=== PATIENT | female | born 1990 | race Caucasian/White ===

== ENCOUNTER 2018-07-01 08:46 | Emergency (ER) | payer OTHER, SELFPAY ==
[2018-07-01] MEDS: NAPROXEN 250 MG TAB PO (09:15)
== END 2018-07-01 09:28 | disposition home or self-care (01) ==
LOC: M ED 08:46
DX: M54.5 Low back pain (principal); F17.220 Nicotine dependence, chewing tobacco, uncomplicated
CPT/HCPCS: 99282

== ENCOUNTER → 2018-07-04 | Outpatient (CLI) | payer OTHER | LOC: M LRY 18:25 | DX: M53.3 Sacrococcygeal disorders, not elsewhere classified (principal); S39.92XS Unspecified injury of lower back, sequela; X50.0XXA Overexertion from strenuous movement or load, initial encounter; Y92.008 Other place in unspecified non-institutional (private) residence as the place of occurrence of the external cause; Y93.E9 Activity, other interior property and clothing maintenance | CPT/HCPCS: 72220 ==

== ENCOUNTER → 2018-09-11 | Outpatient (CLI) | payer OTHER ==
[~2018-09-11] MED LIST: CYCL10TA PO; NAPR-49 PO
--- NOTE | 2018-09-12 02:27 | REP ---
Clinical: Acute right ankle pain with recent trauma/fall . Technique: AP, lateral, bilateral oblique views. Findings: Four views of the right ankle obtained. No acute fracture or dislocation. Skeletal structures and joint spaces are intact and normal. Ankle mortise appears stable. No subcutaneous emphysema or radiodense foreign body. Lateral view demonstrates small calcaneal heal spur. Impression: Normal age-appropriate right ankle radiograph series. No acute fracture or dislocation. Electronically Signed by Jeremi Bernal MD 09/12/2018 02:18 A
== END ==
LOC: M LRY 16:44
PROVIDERS: ATTEND Physician Assistant
DX: M77.31 Calcaneal spur, right foot (principal); M25.571 Pain in right ankle and joints of right foot

== ENCOUNTER 2018-09-16 08:59 | Emergency (ER) | payer OTHER | END 2018-09-16 09:41 | disposition home or self-care (01) | LOC: M ED 08:59 | DX: S99.911A Unspecified injury of right ankle, initial encounter (principal); X50.1XXA Overexertion from prolonged static or awkward postures, initial encounter; Y92.099 Unspecified place in other non-institutional residence as the place of occurrence of the external cause; Y93.89 Activity, other specified; Y99.9 Unspecified external cause status | CPT/HCPCS: 99283 ==

== ENCOUNTER 2018-11-30 08:26 | Emergency (ER) | payer OTHER ==
[~2018-11-30] VITALS: Ht 170.2 cm; Wt 100.0 kg
[~2018-11-30 08:26] MED LIST changes: -NAPR-49 PO; +NAPR-50 PO
[2018-11-30 08:27] VITALS: BP 125/92
--- NOTE | 2018-11-30 09:28 | REP ---
Right lower extremity Duplex Doppler venous ultrasound: Real time compression and duplex Doppler interrogation of the right lower extremity deep venous system is performed. The right common femoral, superficial femoral and popliteal veins are fully compressible with transducer pressure and demonstrate normal spontaneous and phasic flow, without evidence of deep venous thrombosis. Impression: No evidence of deep venous thrombosis of the right lower extremity femoral popliteal venous system. Electronically Signed by James Lee MD 11/30/2018 09:19 A
[2018-11-30] MEDS ORDERED: NAPR-50 PO (09:42)
== END 2018-11-30 09:45 | disposition home or self-care (01) ==
LOC: M ED 08:26
DX: S86.111A Strain of other muscle(s) and tendon(s) of posterior muscle group at lower leg level, right leg, initial encounter (principal); X58.XXXA Exposure to other specified factors, initial encounter; Y92.89 Other specified places as the place of occurrence of the external cause; Z88.0 Allergy status to penicillin; F17.220 Nicotine dependence, chewing tobacco, uncomplicated

== ENCOUNTER 2019-03-22 12:40 | Emergency (ER) | payer OTHER ==
[~2019-03-22] VITALS: Ht 162.6 cm; Wt 115.7 kg
[~2019-03-22 12:40] MED LIST changes: -NAPR-50 PO; +NAPR-837 PO
[2019-03-22] MEDS ORDERED: IBUP200C25 PO (12:46)
--- NOTE | 2019-03-22 15:15 | REP ---
Clinical: Right lower extremity pain. Technique: AP and lateral views of the right tibia / fibula. Findings: Osseous structures, joint spaces, and surrounding soft tissues are normal. No subcutaneous emphysema or radiodense foreign body. No overt arthritic changes. Impression: Normal right tibia / fibula radiographs. Electronically Signed by Jeremi Bernal MD 03/22/2019 03:06 P
[2019-03-22] MEDS ORDERED: IBUPROFEN 600 MG TAB PO ONE (15:30)
[2019-03-22 15:54] VITALS: BP 117/73
== END 2019-03-22 15:56 | disposition home or self-care (01) ==
LOC: M ED 12:40
DX: M79.604 Pain in right leg (principal); F17.220 Nicotine dependence, chewing tobacco, uncomplicated

== ENCOUNTER → 2019-10-05 | Outpatient (REF) | payer OTHER ==
[~2019-10-05] MED LIST changes: +IBUP200C25 PO
== END ==
LOC: M SFHCLERA 19:42
PROVIDERS: ATTEND Physician Assistant
DX: R10.9 Unspecified abdominal pain (principal)

== ENCOUNTER 2019-10-19 12:31 | Emergency (ER) | payer OTHER ==
[~2019-10-19] VITALS: Ht 162.6 cm; Wt 112.9 kg
--- NOTE | 2019-10-19 13:57 | REP ---
Bilateral lower extremity deep vein duplex ultrasound: The deep veins demonstrate normal compression, normal Doppler color flow and normal Doppler waveforms with respiration and augmentation from the popliteal veins to the common femoral veins. Impression: There is no deep vein thrombus on the right on the left. Electronically Signed by James Christian MD 10/19/2019 01:49 P
[2019-10-19] MEDS ORDERED: IBUP-1022 PO (14:20)
[2019-10-19 14:25] VITALS: BP 145/94
== END 2019-10-19 14:27 | disposition home or self-care (01) ==
LOC: M ED 12:31
DX: M79.661 Pain in right lower leg (principal)

== ENCOUNTER 2019-12-12 14:45 | Emergency (ER) | payer OTHER ==
[~2019-12-12] VITALS: Ht 170.2 cm; Wt 111.6 kg
[~2019-12-12 14:45] MED LIST changes: +IBUP-1022 PO
[2019-12-12 14:46] VITALS: BP 129/72
[2019-12-12] MEDS ORDERED: ELIM5CRE2 TOP (15:33)
== END 2019-12-12 15:43 | disposition home or self-care (01) ==
LOC: M ED 14:45
DX: S40.862A Insect bite (nonvenomous) of left upper arm, initial encounter (principal); S20.469A Insect bite (nonvenomous) of unspecified back wall of thorax, initial encounter; W57.XXXA Bitten or stung by nonvenomous insect and other nonvenomous arthropods, initial encounter

== ENCOUNTER 2020-06-12 14:34 | Emergency (ER) | payer OTHER ==
[~2020-06-12] VITALS: Ht 165.1 cm; Wt 111.2 kg
[~2020-06-12 14:34] MED LIST changes: +CYCL-707 PO; -CYCL10TA PO; +ELIM5CRE2 TOP
--- NOTE | 2020-06-12 15:33 | REPVR ---
PROCEDURE INFORMATION: Exam: XR Left Wrist Exam date and time: 06/12/2020 3:25 PM Age: 29 years old Clinical indication: Injury or trauma; Fall; Initial encounter; Blunt trauma (contusions or hematomas); Wrist; Left; Additional info: Fall injury TECHNIQUE: Imaging protocol: XR Left wrist. Views: 3 or more views. COMPARISON: No relevant prior studies available. FINDINGS: Bones/joints: Normal. Soft tissues: Normal. IMPRESSION: No acute findings. Electronically signed by: Sharmin Morrissey On 06/12/2020 15:32:41 PM
[2020-06-12 16:34] VITALS: BP 129/87
== END 2020-06-12 16:35 | disposition home or self-care (01) ==
LOC: M ED 14:34
DX: S63.502A Unspecified sprain of left wrist, initial encounter (principal); W01.0XXA Fall on same level from slipping, tripping and stumbling without subsequent striking against object, initial encounter; Y92.019 Unspecified place in single-family (private) house as the place of occurrence of the external cause; F17.220 Nicotine dependence, chewing tobacco, uncomplicated

== ENCOUNTER → 2020-08-06 | Outpatient (CLI) | payer OTHER ==
[2020-08-06 14:08] LABS: ALBUMIN 3.3 GM/DL (3.2-5.2); ALT/SGPT 22 U/L (12-78); BILIRUBIN,TOTAL 0.5 MG/DL (0.2-1.0); BLOOD UREA NITROGEN 9 MG/DL (7-18); CALCIUM LEVEL 8.8 MG/DL (8.5-10.1); CARBON DIOXIDE LEVEL 24 MEQ/L (21-32); CHLORIDE LEVEL 109 MEQ/L (98-107); CREATININE FOR GFR 0.68 MG/DL (0.55-1.30); FREE T4 1.15 NG/DL (0.76-1.46); GLOMERULAR FILTRATION RATE > 60.0 (>60); GLUCOSE, FASTING 121 MG/DL (70-100); POTASSIUM SERUM 3.7 MEQ/L (3.5-5.1); SODIUM LEVEL 140 MEQ/L (136-145); TOTAL PROTEIN 6.7 GM/DL (6.4-8.2)
== END ==
LOC: M LAB 12:51
PROVIDERS: ATTEND Nurse Practitioner Family
DX: F41.9 Anxiety disorder, unspecified (principal)

== ENCOUNTER → 2021-05-02 | Outpatient (CLI) | payer OTHER ==
--- NOTE | 2021-05-02 12:37 | REP ---
INDICATION: PAIN IN RIGHT KNEE. COMPARISON: 01/16/2013. TECHNIQUE: There are four views including weight-bearing lateral view, tunnel view, nonweightbearing lateral view and patellofemoral sunrise view. There is no AP view for reasons unknown to this examiner. FINDINGS: The previous suprapatellar are effusion is no longer present. The previous soft tissue edema anteriorly is no longer present. Mineralization and joint spaces are unremarkable. There are no calcifications. On the patellar view the patella is slightly tilted laterally. IMPRESSION: The patella appears slightly tilted laterally. Otherwise, the views presented are unremarkable. <Electronically signed by James Christian > 05/02/21 [id number]
== END ==
LOC: M SOG 10:48
PROVIDERS: ATTEND Orthopaedic Surgery Adult Reconstructive Orthopaedic Surgery
DX: M25.561 Pain in right knee (principal)

== ENCOUNTER → 2021-05-14 | Outpatient (CLI) | payer OTHER ==
--- NOTE | 2021-05-14 13:23 | REP ---
INDICATION: UNSPECIFIED INTERNAL DERANGEMENT RT KNEE. COMPARISON: MRI 03/18/2010, plain films 05/02/2021. TECHNIQUE: Multiple sequences obtained in the axial, coronal and sagittal planes. FINDINGS: Menisci: Intact, no tear. Cruciate ligaments: Intact. Collateral ligaments: Intact. Extensor mechanism/patellar retinacula: Intact. Cartilage: There is moderate diffuse chondromalacia of the lateral patellar facet with mild chondromalacia of the medial patellar facet. There is mild diffuse chondromalacia of the femoral condyles and tibial plateaus. Bone marrow: There is mild subcortical marrow edema anteriorly in the central tibial plateau. Joint fluid: There is a mild to moderate joint effusion. Popliteal region: No cyst. IMPRESSION: No evidence of internal derangement. Diffuse chondromalacia, most significantly of the lateral patellar facet. Mild subchondral marrow edema in the anterior central tibial plateau. Mild to moderate joint effusion. <Electronically signed by James Lee > 05/14/21 [id number]
== END ==
LOC: M RAD 11:34
PROVIDERS: ATTEND Orthopaedic Surgery Adult Reconstructive Orthopaedic Surgery
DX: M23.91 Unspecified internal derangement of right knee (principal)

== ENCOUNTER → 2021-06-12 | Outpatient (CLI) | payer OTHER ==
[~2021-06-12] MED LIST changes: +ALBU8.5H INH; +HYDR-3363 PO; +LEXA1TAB2 PO
== END ==
LOC: M LABSMTC 10:19
PROVIDERS: ATTEND Anesthesiology
DX: Z01.818 Encounter for other preprocedural examination (principal); Z11.52 Encounter for screening for COVID-19

== ENCOUNTER → 2021-06-17 | Day surgery (SDC) | payer OTHER ==
[~2021-06-17] VITALS: Ht 167.6 cm; Wt 110.9 kg
[~2021-06-17] MED LIST changes: +ACETAMINOPHEN 500 MG TAB PO ONE; +BUPIVACAINE/EPIN 0.5% 30 ML VIAL As Ordered ONE; +CelecoXIB 400 MG CAP PO ONE; +EPINEPHrine 1MG/ML INJ 30ML MD-VIAL As Ordered ONE; +GABAPENTIN 300 MG CAP PO ONE; +HYDROmorphone HCL 2 MG/ML 1ML VIAL As Ordered ONE; +LIDOCAINE 2% 100MG/5ML SDV (FOR ANES.) As Ordered ONE; +LR 1,000 ML IV ONE; +LR 1,000 ML IV SCH; +METOCLOPRAMIDE INJ 10MG/2ML VIAL (J2765 PER 1) As Ordered ONE; +METOCLOPRAMIDE INJ 10MG/2ML VIAL (J2765 PER 1) IV PRN; +MIDAZOLAM INJ 2MG/2ML VIAL (J2250 PER 1MG) As Ordered ONE; +ONDANSETRON 4MG/2ML VIAL As Ordered ONE; +ONDANSETRON 4MG/2ML VIAL IV ONE; +ONDANSETRON 4MG/2ML VIAL IV PRN; +PERCOCET 5MG/325MG TAB PO PRN; +dexameTHASONE 4 MG/ML 1ML VIAL (J1100 PER 1MG) As Ordered ONE; +ePHEDrine SULFATE 25 MG/5 ML(5MG/ML) SYRINGE As Ordered ONE; +fentaNYL 100 MCG/2 ML INJECTION (J3010) As Ordered ONE; +fentaNYL 100 MCG/2 ML INJECTION (J3010) IV PRN; +propofoL 200 MG/20 ML VIAL As Ordered ONE
--- NOTE | 2021-06-17 12:31 | ROOPDOC ---
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 COMPLICATIONS: No known complications. REMARKS: Tourniquet inflated for 34 minutes. PROCEDURE NOTE: The patient was seen in the preoperative area, Consent was reviewed or obtained and the appropriate extremity was marked. DESCRIPTION OF PROCEDURE: The patient was brought to the operating room and after a surgical pause, the anesthetic was induced. The patient was appropriately positioned supine on the operating room table. A tourniquet was applied to the appropriate thigh with appropriate padding. Side bolster was also applied to help with manipulation of the extremity during the procedure. The extremity was prepped with chlorhexidine. The patient was draped in the normal sterile fashion. After a surgical safety checklist was performed, and a timeout was performed, the tourniquet was inflated and the incision over the lateral portal site was carried out. The trocar was introduced using the blunt tip. The scope was intr oduced and the fluid was allowed to run until the joint was insufflated with the scope in the patellofemoral joint. A diagnostic arthroscopy was then carried out. A medial portal was established using needle localization technique. A superior lateral portal was also established using needle localization. Patellofemoral joint: Plica present which was debrided with the shaver Patella: Grade 2-3 changes debrided with the shaver Medial gutter: Clear Lateral gutter: Clear Medial meniscus: Stable Medial femoral condyle: Grade 1 Medial tibial condyle: Grade 1 ACL: Stable Lateral meniscus: Stable Lateral femoral condyle: Grade 1 Lateral tibial plateau: Grade 1 was some evidence of delamination, centrally Using spinal needle localization a superior lateral portal was made in the patellofemoral pouch area. This was expanded with the #11 blade and the portal and instruments were introduced through this in order to get a better view of the lateral retinacular area. This was utilized to perform the lateral release utilizing a cautery device. Post lateral release it was noted that the patellofemoral joint which had been quite tight was relaxed and loose and there was less pressure on the lateral edge. Once the arthroscopic procedure was completed, the fluid was removed from the joint and the wounds were closed with 3. 0 Monocryl suture. Local anesthetic of 0.5% Marcaine with epi was instilled in the soft tissues and into the joint region. Mastisol was applied to the skin followed by Steri-Strips and Telfa and Tegaderm dressing. This was reinforced with an abdominal pad and a large John wrap was placed up to the level of the thigh from the foot and ankle. The patient tolerated the procedure well with no known complications. The patient will be seen for follow-up within 2 weeks, as scheduled. Postoperative instruction booklet was provided. The patient will have prescriptions for oxycodone for pain, baby aspirin for DVT prophylaxis, and senna for constipation. Tylenol and ibuprofen can be used as directed by bottle instructions. Prescriptions were sent to [facility], as requested. Thank you for referring this patient to my care, JAX MUNOZ MD Jun 17, 2021 12:31
[2021-06-17 13:55] VITALS: BP 140/78
== END | disposition home or self-care (01) ==
LOC: M SDC 09:22
PROVIDERS: ATTEND Orthopaedic Surgery Adult Reconstructive Orthopaedic Surgery
DX: M94.261 Chondromalacia, right knee (principal); M67.51 Plica syndrome, right knee; F41.9 Anxiety disorder, unspecified; Z79.899 Other long term (current) drug therapy; E66.9 Obesity, unspecified; F17.220 Nicotine dependence, chewing tobacco, uncomplicated
CPT/HCPCS: 29873; 29879; 81025; J1100; J1170; J2250; J2405; J2765; J3010

== ENCOUNTER → 2021-09-10 | Outpatient (CLI) | payer OTHER ==
[~2021-09-10] MED LIST changes: -ACETAMINOPHEN 500 MG TAB PO ONE; -BUPIVACAINE/EPIN 0.5% 30 ML VIAL As Ordered ONE; -CelecoXIB 400 MG CAP PO ONE; -EPINEPHrine 1MG/ML INJ 30ML MD-VIAL As Ordered ONE; -GABAPENTIN 300 MG CAP PO ONE; -HYDROmorphone HCL 2 MG/ML 1ML VIAL As Ordered ONE; -LIDOCAINE 2% 100MG/5ML SDV (FOR ANES.) As Ordered ONE; -LR 1,000 ML IV ONE; -LR 1,000 ML IV SCH; +MELO15TA28 PO; -METOCLOPRAMIDE INJ 10MG/2ML VIAL (J2765 PER 1) As Ordered ONE; -METOCLOPRAMIDE INJ 10MG/2ML VIAL (J2765 PER 1) IV PRN; -MIDAZOLAM INJ 2MG/2ML VIAL (J2250 PER 1MG) As Ordered ONE; -ONDANSETRON 4MG/2ML VIAL As Ordered ONE; -ONDANSETRON 4MG/2ML VIAL IV ONE; -ONDANSETRON 4MG/2ML VIAL IV PRN; -PERCOCET 5MG/325MG TAB PO PRN; -dexameTHASONE 4 MG/ML 1ML VIAL (J1100 PER 1MG) As Ordered ONE; -ePHEDrine SULFATE 25 MG/5 ML(5MG/ML) SYRINGE As Ordered ONE; -fentaNYL 100 MCG/2 ML INJECTION (J3010) As Ordered ONE; -fentaNYL 100 MCG/2 ML INJECTION (J3010) IV PRN; -propofoL 200 MG/20 ML VIAL As Ordered ONE
[2021-09-10 12:19] LABS: BASO # 0.1 10^3/uL (0.0-0.2); BASO % 0.9 % (0.0-1.0); EOS # 0.2 10^3/uL (0.0-0.5); EOS % 4.4 % (0.0-3.0); HEMATOCRIT 42.4 % (36.0-47.0); HEMOGLOBIN 14.5 g/dl (12.0-15.5); LYMPH # 1.8 10^3/uL (1.5-5.0); LYMPH % 33.3 % (24.0-44.0); MEAN CORPUSCULAR HEMOGLOBIN 29.8 pg (27.0-33.0); MEAN CORPUSCULAR HGB CONC 34.2 g/dl (32.0-36.5); MEAN CORPUSCULAR VOLUME 87.1 fl (80.0-96.0); MONO # 0.5 10^3/uL (0.0-0.8); MONO % 8.4 % (2.0-8.0); NEUTROPHILS # 2.9 10^3/uL (1.5-8.5); NEUTROPHILS % 52.6 % (36.0-66.0); PLATELET COUNT, AUTOMATED 359 10^3/uL (150-450); RED BLOOD COUNT 4.87 10^6/uL (4.00-5.40); WHITE BLOOD COUNT 5.5 10^3/uL (4.0-10.0)
[2021-09-10 12:47] LABS: ALBUMIN 3.4 GM/DL (3.2-5.2); ALT/SGPT 43 U/L (12-78); BILIRUBIN,TOTAL 0.5 MG/DL (0.2-1.0); BLOOD UREA NITROGEN 7 MG/DL (7-18); CALCIUM LEVEL 9.4 MG/DL (8.5-10.1); CARBON DIOXIDE LEVEL 30 MEQ/L (21-32); CHLORIDE LEVEL 104 MEQ/L (98-107); CREATININE FOR GFR 0.59 MG/DL (0.55-1.30); GLOMERULAR FILTRATION RATE > 60.0 (>60); GLUCOSE, FASTING 98 MG/DL (70-100); POTASSIUM SERUM 4.3 MEQ/L (3.5-5.1); SODIUM LEVEL 139 MEQ/L (136-145)
== END ==
LOC: M LAB 11:17
PROVIDERS: ATTEND Student in an Organized Health Care Education/Training Program
DX: Z01.818 Encounter for other preprocedural examination (principal)

== ENCOUNTER → 2022-01-26 | Outpatient (CLI) | payer OTHER ==
[2022-01-26 14:26] LABS: BASO # 0.1 10^3/uL (0.0-0.2); BASO % 1.2 % (0.0-1.0); EOS # 0.3 10^3/uL (0.0-0.5); EOS % 4.7 % (0.0-3.0); HEMATOCRIT 43.1 % (36.0-47.0); HEMOGLOBIN 14.4 g/dl (12.0-15.5); LYMPH # 2.2 10^3/uL (1.5-5.0); MEAN CORPUSCULAR HEMOGLOBIN 29.1 pg (27.0-33.0); MEAN CORPUSCULAR HGB CONC 33.4 g/dl (32.0-36.5); MEAN CORPUSCULAR VOLUME 87.1 fl (80.0-96.0); MONO # 0.5 10^3/uL (0.0-0.8); MONO % 7.4 % (2.0-8.0); NEUTROPHILS # 3.5 10^3/uL (1.5-8.5); NEUTROPHILS % 53.4 % (36.0-66.0); PLATELET COUNT, AUTOMATED 329 10^3/uL (150-450); RED BLOOD COUNT 4.95 10^6/uL (4.00-5.40); WHITE BLOOD COUNT 6.6 10^3/uL (4.0-10.0)
[2022-01-26 14:49] LABS: ALBUMIN 3.7 GM/DL (3.2-5.2); ALT/SGPT 22 U/L (12-78); BILIRUBIN,TOTAL 0.4 MG/DL (0.2-1.0); BLOOD UREA NITROGEN 9 MG/DL (7-18); CALCIUM LEVEL 9.5 MG/DL (8.5-10.1); CARBON DIOXIDE LEVEL 26 MEQ/L (21-32); CHLORIDE LEVEL 108 MEQ/L (98-107); CREATININE FOR GFR 0.55 MG/DL (0.55-1.30); GLOMERULAR FILTRATION RATE > 60.0 (>60); GLUCOSE, FASTING 83 MG/DL (70-100); POTASSIUM SERUM 3.9 MEQ/L (3.5-5.1); SODIUM LEVEL 141 MEQ/L (136-145); TOTAL PROTEIN 6.9 GM/DL (6.4-8.2)
== END ==
LOC: M LAB 12:29
PROVIDERS: ATTEND Family Medicine
DX: Z01.818 Encounter for other preprocedural examination (principal); M25.561 Pain in right knee; F41.9 Anxiety disorder, unspecified; E66.01 Morbid (severe) obesity due to excess calories

== ENCOUNTER → 2022-01-27 | Outpatient (CLI) | payer OTHER | LOC: M RAD 09:33 | PROVIDERS: ATTEND Orthopaedic Surgery Adult Reconstructive Orthopaedic Surgery | DX: M22.41 Chondromalacia patellae, right knee (principal) ==

== ENCOUNTER 2022-02-10 09:04 | Day surgery (SDC) | payer OTHER ==
[~2022-02-10] VITALS: Ht 162.6 cm; Wt 110.2 kg
[~2022-02-10 09:04] MED LIST changes: +ACETAMINOPHEN 500 MG TAB PO ONE; +LR 1,000 ML IV ONE; +MIDAZOLAM INJ 2MG/2ML VIAL (J2250 PER 1MG) As Ordered ONE; +NAPROXEN 250 MG TAB PO ONE; +NS 1,000 ML IV ONE; +PREGABALIN 25 MG CAP (LYRICA) PO ONE; +ROPIVA 125MG/EPINEPH 0.25MG/CLONID 40MCG/KETOR 15MG IN NS 50ML SYRINGE PA ONE; +ceFAZolin SOD 2 GM in IV 1 EA IV ONE; +dexameTHASONE 4 MG/ML 1ML VIAL (J1100 PER 1MG) IV ONE; +fentaNYL 100 MCG/2 ML INJECTION As Ordered ONE; +propofoL 500 MG/50 ML VIAL As Ordered ONE
[2022-02-10] MEDS ORDERED: NAPROXEN 250 MG TAB PO ONE (10:05)
[2022-02-10] MEDS ORDERED: TRANEXAMIC ACID 100 MG/ML 10ML VIAL As Ordered ONE (10:10)
[2022-02-10] MEDS ORDERED: dexameTHASONE 4 MG/ML 1ML VIAL (J1100 PER 1MG) As Ordered ONE (11:17)
[2022-02-10] MEDS ORDERED: KETOROLAC 60MG 2ML VIAL As Ordered ONE (11:17)
[2022-02-10] MEDS ORDERED: ONDANSETRON 4MG/2ML VIAL As Ordered ONE (11:17)
[2022-02-10] MEDS ORDERED: propofoL 500 MG/50 ML VIAL As Ordered ONE (11:44)
[2022-02-10] MEDS ORDERED: fentaNYL 100 MCG/2 ML INJECTION IV PRN (13:15)
[2022-02-10] MEDS ORDERED: LR 1,000 ML IV SCH ×2 (13:15→13:30)
[2022-02-10] MEDS ORDERED: oxyCODONE 5MG TAB PO PRN ×3 (13:15→13:20)
[2022-02-10] MEDS ORDERED: ONDANSETRON 4MG/2ML VIAL IV PRN ×2 (13:15→13:20)
[2022-02-10] MEDS ORDERED: SENNA 8.6 MG TAB (SENOKOT) PO PRN (13:20)
[2022-02-10] MEDS ORDERED: traMADol 50 MG TAB PO PRN (13:20)
[2022-02-10 13:58] LABS: HEMATOCRIT 42.1 % (36.0-47.0); HEMOGLOBIN 14.1 g/dl (12.0-15.5); MEAN CORPUSCULAR HEMOGLOBIN 29.9 pg (27.0-33.0); MEAN CORPUSCULAR HGB CONC 33.5 g/dl (32.0-36.5); MEAN CORPUSCULAR VOLUME 89.2 fl (80.0-96.0); PLATELET COUNT, AUTOMATED 281 10^3/uL (150-450); RED BLOOD COUNT 4.72 10^6/uL (4.00-5.40); WHITE BLOOD COUNT 10.1 10^3/uL (4.0-10.0)
[2022-02-10 14:23] LABS: ALBUMIN 3.2 GM/DL (3.2-5.2); ALT/SGPT 29 U/L (12-78); BILIRUBIN,TOTAL 0.4 MG/DL (0.2-1.0); BLOOD UREA NITROGEN 8 MG/DL (7-18); CARBON DIOXIDE LEVEL 24 MEQ/L (21-32); CHLORIDE LEVEL 110 MEQ/L (98-107); CREATININE FOR GFR 0.72 MG/DL (0.55-1.30); GLOMERULAR FILTRATION RATE > 60.0 (>60); GLUCOSE, FASTING 138 MG/DL (70-100); POTASSIUM SERUM 3.6 MEQ/L (3.5-5.1); SODIUM LEVEL 139 MEQ/L (136-145); TOTAL PROTEIN 6.8 GM/DL (6.4-8.2)
[2022-02-10 15:00] VITALS: BP 119/61
[2022-02-10 15:30] VITALS: BP 112/68
[2022-02-10] MEDS ORDERED: ACET1TAB37 PO (15:31)
[2022-02-10] MEDS ORDERED: ASPI-551 PO (15:31)
[2022-02-10] MEDS ORDERED: SENN18TA PO (15:31)
[2022-02-10] MEDS ORDERED: OXYC-517 PO (15:31)
[2022-02-10] MEDS ORDERED: ACETAMINOPHEN TAB 650MG DOSE (2X325MG) PO SCH (18:00)
[2022-02-10] MEDS ORDERED: ceFAZolin SOD 2 GM in IV 1 EA IV SCH (18:00)
[2022-02-10] MEDS ORDERED: NAPROXEN 250 MG TAB PO SCH (21:00)
[2022-02-10] MEDS ORDERED: ASPIRIN 81MG ENTERIC TABLET PO SCH (21:00)
[2022-02-10] MEDS ORDERED: DOCUSATE SODIUM 100MG CAPSULE PO SCH (21:00)
[2022-02-11] MEDS ORDERED: ASCORBIC ACID 500 MG TAB PO SCH (09:00)
[2022-02-11] MEDS ORDERED: FERROUS SULFATE 325MG TAB PO SCH (09:00)
== END 2022-02-10 16:40 | disposition home health service (06) ==
LOC: M SDC 09:04 → M MS5PR 14:40 → M SDC 16:40
PROVIDERS: ATTEND Orthopaedic Surgery Adult Reconstructive Orthopaedic Surgery
DX: M22.41 Chondromalacia patellae, right knee (principal); I10 Essential (primary) hypertension; F41.9 Anxiety disorder, unspecified; F32.9 Major depressive disorder, single episode, unspecified; Z87.891 Personal history of nicotine dependence
CPT/HCPCS: 27438; 36415; 73560; 80053; 85027; 88304; 88311; 97116; 97161; 97530; C1713; C1776; J0690; J1100; J1885; J2250; J2405; J3010

== ENCOUNTER → 2022-02-24 | Outpatient (CLI) | payer OTHER ==
[~2022-02-24] MED LIST changes: +ACET1TAB37 PO; -ACETAMINOPHEN 500 MG TAB PO ONE; +ASPI-551 PO; -LR 1,000 ML IV ONE; -MIDAZOLAM INJ 2MG/2ML VIAL (J2250 PER 1MG) As Ordered ONE; -NAPROXEN 250 MG TAB PO ONE; -NS 1,000 ML IV ONE; +OXYC-517 PO; -PREGABALIN 25 MG CAP (LYRICA) PO ONE; -ROPIVA 125MG/EPINEPH 0.25MG/CLONID 40MCG/KETOR 15MG IN NS 50ML SYRINGE PA ONE; +SENN18TA PO; -ceFAZolin SOD 2 GM in IV 1 EA IV ONE; -dexameTHASONE 4 MG/ML 1ML VIAL (J1100 PER 1MG) IV ONE; -fentaNYL 100 MCG/2 ML INJECTION As Ordered ONE; -propofoL 500 MG/50 ML VIAL As Ordered ONE
== END ==
LOC: M SOG 08:07
PROVIDERS: ATTEND Orthopaedic Surgery Adult Reconstructive Orthopaedic Surgery
DX: M17.31 Unilateral post-traumatic osteoarthritis, right knee (principal)

== ENCOUNTER 2022-03-19 08:51 | Outpatient (RCR) | payer OTHER | END 2022-03-26 | LOC: M PT 08:51 | PROVIDERS: ATTEND Orthopaedic Surgery Adult Reconstructive Orthopaedic Surgery | DX: Z47.1 Aftercare following joint replacement surgery (principal); Z96.651 Presence of right artificial knee joint ==

== ENCOUNTER → 2022-10-09 | Outpatient (CLI) | payer OTHER | LOC: M SOG 12:01 | PROVIDERS: ATTEND Orthopaedic Surgery Adult Reconstructive Orthopaedic Surgery | DX: Z47.89 Encounter for other orthopedic aftercare (principal); Z98.890 Other specified postprocedural states; Z96.651 Presence of right artificial knee joint ==

== ENCOUNTER → 2022-10-20 | Outpatient (REF) | payer OTHER ==
[2022-10-20 17:57] LABS: BASO # 0.1 10^3/uL (0.0-0.2); BASO % 1.2 % (0.0-1.0); EOS # 0.4 10^3/uL (0.0-0.5); EOS % 5.8 % (0.0-3.0); HEMATOCRIT 42.4 % (36.0-47.0); LYMPH # 1.9 10^3/uL (1.5-5.0); LYMPH % 31.7 % (24.0-44.0); MEAN CORPUSCULAR HEMOGLOBIN 29.6 pg (27.0-33.0); MEAN CORPUSCULAR VOLUME 89.6 fl (80.0-96.0); MONO # 0.5 10^3/uL (0.0-0.8); MONO % 8.2 % (2.0-8.0); NEUTROPHILS # 3.2 10^3/uL (1.5-8.5); NEUTROPHILS % 52.8 % (36.0-66.0); PLATELET COUNT, AUTOMATED 328 10^3/uL (150-450); RED BLOOD COUNT 4.73 10^6/uL (4.00-5.40)
[2022-10-20 19:32] LABS: THYROID STIMULATING HORMONE 2.409 uIU/ML (0.55-4.78); TOTAL 25(OH) VITAMIN D 12.8 NG/ML (20.0-100.0)
[2022-10-20 19:34] LABS: ALBUMIN 3.3 G/DL (3.2-5.2); ALKALINE PHOSPHATASE 87 U/L (46-116); ALT/SGPT 16 U/L (7.0-40); AST/SGOT 16 U/L (<34); BILIRUBIN,TOTAL 0.5 MG/DL (0.3-1.2); BLOOD UREA NITROGEN 10 MG/DL (9-23); CARBON DIOXIDE LEVEL 28 MMOL/L (20-31); CHLORIDE LEVEL 104 MMOL/L (98-107); CHOLESTEROL LEVEL 165 MG/DL (<200); CHOLESTEROL RISK RATIO 5.09 (<5); CREATININE FOR GFR 0.65 MG/DL (0.55-1.30); GLOMERULAR FILTRATION RATE > 60.0 (>60); GLUCOSE, FASTING 95 MG/DL (60-100); HDL CHOLESTEROL 32.4 MG/DL (>40); LDL CHOLESTEROL 77.6 MG/DL (<100); NON-HDL-C 133 MG/DL; SODIUM LEVEL 140 MMOL/L (136-145); TOTAL PROTEIN 6.1 G/DL (5.7-8.2); TRIGLYCERIDES LEVEL 275 MG/DL (<150)
[2022-10-20 21:50] LABS: HEMOGLOBIN A1c 4.8 % (4.0-6.0)
== END ==
LOC: M LAB REF 16:51
PROVIDERS: ATTEND Nurse Practitioner Family
DX: Z13.228 Encounter for screening for other metabolic disorders (principal)

== ENCOUNTER → 2022-10-23 | Outpatient (CLI) | payer OTHER | LOC: M PLARAD 09:00 | PROVIDERS: ATTEND Orthopaedic Surgery Adult Reconstructive Orthopaedic Surgery | DX: Z96.651 Presence of right artificial knee joint (principal) ==

== ENCOUNTER → 2023-02-10 | Outpatient (REF) | payer OTHER ==
[2023-02-10 17:43] LABS: CHOLESTEROL RISK RATIO 4.52 (<5); HDL CHOLESTEROL 39.8 MG/DL (>40); LDL CHOLESTEROL 107.6 MG/DL (<100); NON-HDL-C 140.2 MG/DL
== END ==
LOC: M LAB REF 16:33
PROVIDERS: ATTEND Nurse Practitioner Family
DX: R79.89 Other specified abnormal findings of blood chemistry (principal)

== ENCOUNTER 2023-07-27 15:15 | Emergency (ER) | payer OTHER ==
[~2023-07-27] VITALS: Ht 170.2 cm; Wt 105.8 kg
[~2023-07-27 15:15] MED LIST changes: +SENN-111 PO; -SENN18TA PO
[2023-07-27 17:24] VITALS: BP 117/74; TEMP 97.6; O2SAT 99
== END 2023-07-27 17:25 | disposition home or self-care (01) ==
LOC: M ED 15:15
DX: S60.221A Contusion of right hand, initial encounter (principal); W22.09XA Striking against other stationary object, initial encounter; F41.9 Anxiety disorder, unspecified; F32.A Depression, unspecified; Y92.009 Unspecified place in unspecified non-institutional (private) residence as the place of occurrence of the external cause; Y93.9 Activity, unspecified; Y99.9 Unspecified external cause status

== ENCOUNTER 2025-06-12 11:40 | Emergency (ER) | payer OTHER ==
[~2025-06-12] VITALS: Ht 170.2 cm; Wt 111.1 kg
[~2025-06-12 11:40] MED LIST changes: +ACET-1592 PO; -ACET1TAB37 PO; -ELIM5CRE2 TOP; -IBUP-1022 PO; +IBUP600T42 PO; +PERM60CR8 TOP; -SENN-111 PO; +SENN-165 PO
[2025-06-12] MEDS: KETOROLAC 60 MG/2 ML VIAL IM ONE (14:11)
[2025-06-12 15:18] VITALS: BP 132/88; TEMP 98.6; O2SAT 100
[2025-06-12] MEDS ORDERED: METH-1164 PO (15:30)
[2025-06-12] MEDS ORDERED: IBUP600T42 PO (15:30)
== END 2025-06-12 15:35 | disposition home or self-care (01) ==
LOC: M ED 11:40
DX: M94.0 Chondrocostal junction syndrome [Tietze] (principal); F41.9 Anxiety disorder, unspecified; F32.A Depression, unspecified; Z79.1 Long term (current) use of non-steroidal anti-inflammatories (NSAID); Z79.899 Other long term (current) drug therapy
CPT/HCPCS: 71101; 96372; 99283; J1885

== ENCOUNTER 2025-09-04 12:07 | Emergency (ER) | payer OTHER ==
[~2025-09-04] VITALS: Ht 167.6 cm; Wt 109.6 kg
[~2025-09-04 12:07] MED LIST changes: +METH-1164 PO
[2025-09-04] MEDS ORDERED: LAMI5CHW PO (12:12)
[2025-09-04] MEDS ORDERED: MIRT1TAB16 PO (12:12)
[2025-09-04 15:41] VITALS: BP 122/75; TEMP 97.8; O2SAT 97
[2025-09-04] MEDS: IBUPROFEN 600 MG TAB PO ONE (15:43)
== END 2025-09-04 15:46 | disposition home or self-care (01) ==
LOC: M ED 12:07
DX: S63.501A Unspecified sprain of right wrist, initial encounter (principal); W00.0XXA Fall on same level due to ice and snow, initial encounter; F41.9 Anxiety disorder, unspecified; F32.A Depression, unspecified; Y92.009 Unspecified place in unspecified non-institutional (private) residence as the place of occurrence of the external cause; Y93.89 Activity, other specified; Y99.9 Unspecified external cause status; Z79.1 Long term (current) use of non-steroidal anti-inflammatories (NSAID); Z79.899 Other long term (current) drug therapy